=== PATIENT | male | born 1950 | race Caucasian/White ===

== ENCOUNTER 2018-08-11 11:40 | Day surgery (SDC) | payer MEDICARE ==
[2018-08-11] MEDS ORDERED: LACTATED RINGERS 1,000 ML IV ONE ×2 (12:11→14:17)
[2018-08-11] MEDS ORDERED: MIDAZOLAM 2 MG/2 ML VIAL IVP ONE (13:45)
[2018-08-11] MEDS ORDERED: fentaNYL 250 MCG/5 ML VIAL IVP ONE (13:45)
[2018-08-11 14:56] VITALS: BP 110/64
== END 2018-08-11 11:41 | disposition home or self-care (01) ==
LOC: SDS 11:40
PROVIDERS: ATTEND Surgery
PROC: 0DJD8ZZ Inspection of Lower Intestinal Tract, Via Natural or Artificial Opening Endoscopic (ICD-10-PCS; principal; 2018-08-11 12:45)
DX: Z12.11 Encounter for screening for malignant neoplasm of colon (principal); Z86.010 Personal history of colon polyps; K64.8 Other hemorrhoids
CPT/HCPCS: G0105; J3010; J7120

== ENCOUNTER 2019-10-16 14:45 | Outpatient (CLI) | payer MEDICARE ==
--- NOTE | 2019-10-16 17:08 | Ultrasound Report ---
Reason: HISTORY OF MALIGNANT MELANOMA X2 Procedure Date: 10/16/2019 Accession Number: [id number] / [id number] Procedure: US - Head or Neck Soft Tissue CPT Code: Final Report FULL RESULT: EXAM: NECK SOFT TISSUE ULTRASOUND EXAM DATE: 10/16/2019 03:10 PM. CLINICAL HISTORY: HISTORY OF MALIGNANT MELANOMA X2. Left neck palpable lump. History of malignant melanoma x2. COMPARISON: None. TECHNIQUE: Real time sonographic imaging of the thyroid was performed by the drying can worker. Multiple retail field representative static images were saved for review. FINDINGS: Area scanned is over the palpable lump at the left side of the neck. At the palpable abnormality, there is a hypoechoic round mass, non-mobile and noncompressible with some vascularity, measures 9 x 9 x 8 mm. This could represent a malignant mass/metastasis, and further workup is recommended. IMPRESSION: Area scanned is over the palpable lump at the left side of the neck. At the palpable abnormality, there is a hypoechoic round mass, non-mobile and noncompressible with some vascularity, measures 9 x 9 x 8 mm. This could represent a malignant mass/metastasis, and further workup is recommended. RADIA
== END 2019-10-16 14:46 | disposition home or self-care (01) ==
LOC: DI 14:45
PROVIDERS: ATTEND Physician Assistant Medical
DX: R22.1 Localized swelling, mass and lump, neck (principal); Z85.820 Personal history of malignant melanoma of skin
CPT/HCPCS: 76536

== ENCOUNTER 2021-09-18 08:00 | Outpatient (CLI) | payer MEDICARE ==
[2021-09-18 20:27] LABS: BILIRUBIN,URINE NEGATIVE (NEGATIVE); GLUCOSE, URINE (UA) NEGATIVE (NEGATIVE); KETONES,URINE (UA) NEGATIVE (NEGATIVE); LEUKOCYTE ESTERASE, URINE MODERATE (NEGATIVE); NITRITE,URINE NEGATIVE (NEGATIVE); OCCULT BLOOD,URINE MODERATE (NEGATIVE); PH,URINE 5.5 PH (5.0-7.5); PROTEIN,URINE NEGATIVE (NEGATIVE); UROBILINOGEN,URINE 0.2 (NORMAL) E.U./dL (NORMAL)
[2021-09-18 20:35] LABS: CLARITY,URINE HAZY (CLEAR)
[2021-09-18 20:54] LABS: BACTERIA,URINE Moderate /HPF (None Seen); SQUAMOUS EPITHELIAL CELL,UR RARE Squamous (<= Few); WBC,URINE >25 /HPF (0-3)
== END 2021-09-18 23:59 | disposition home or self-care (01) ==
LOC: LAB.S 08:00
PROVIDERS: ATTEND Physician Assistant Medical
DX: R35.0 Frequency of micturition (principal)
CPT/HCPCS: 81001; 87086; 87181

== ENCOUNTER 2021-12-11 08:00 | Outpatient (CLI) | payer MEDICARE ==
--- NOTE | 2021-12-11 10:24 | XRAY Report ---
PROCEDURE: Abdomen 2 View X-Ray INDICATIONS: ABDOMINAL PAIN TECHNIQUE: 2 views of the abdomen were acquired. COMPARISON: Postoperative changes of right shoulder replacement. Irregular airspace opacities in the right lower lobe are seen which were not present on the prior study on 03/08/2021. There is also blun ting of the left costophrenic angle consistent with a pleural effusion. With the appearance of fibros is FINDINGS: Surgical changes and devices: None. Bowel: No pneumoperitoneum. The bowel gas pattern is normal. Soft tissues: No masses; visualized solid organ contours appear normal in size. No suspicious abdom inal calcifications. Bones: No suspicious bony abnormalities. IMPRESSION: 1. Right lower lobe airspace opacities 2. Bilateral lower lobe pleural effusions small bilateral pleural effusions there is rightward curvat ure of the thoracic spine., New compared to the prior x-ray. Differential diagnosis includes pneumoni a. Close consistent with pneumonia most consistent with pneumonia. Reviewed by: Orlando Mcadmas on 12/11/2021 9:23 AM BABITA Approved by: Orlando Mcadams on 12/11/2021 9:23 AM BABITA Station ID: [id number]
--- NOTE | 2021-12-11 10:27 | XRAY Report ---
PROCEDURE: Pelvis 1 View INDICATIONS: FOREIGN BODY IN RECTUM X 2 DAYS TECHNIQUE: AP and lateral views of the pelvis were performed. COMPARISON: None. FINDINGS: There is a foreign body in the right lower quadrant superimposed over the right sacrum on the right, likely the rectal foreign body described in patient history. No other significant abnormality other t de paz mild degenerative changes. IMPRESSION: Foreign body in the right lower quadrant, likely within the distal sigmoid colon/rectum. Reviewed by: Orlando Mcadams on 12/11/2021 9:25 AM BABITA Approved by: Orlando Mcadams on 12/11/2021 9:25 AM BABITA Station ID: [id number]
== END 2021-12-11 23:59 | disposition home or self-care (01) ==
LOC: DI.S 08:00
PROVIDERS: ATTEND Physician Assistant
DX: T18.5XXA Foreign body in anus and rectum, initial encounter (principal); J90 Pleural effusion, not elsewhere classified

== ENCOUNTER 2021-12-11 11:06 | Day surgery (SDC) | payer MEDICARE ==
[2021-12-11 11:30] LABS: BASOPHILS % (AUTO) 0.3 %; EOSINOPHILS # (AUTO) 0.2 10^3/uL (0.0-0.7); EOSINOPHILS % (AUTO) 2.4 %; HCT - HEMATOCRIT 43.9 % (42.0-52.0); HGB - HEMOGLOBIN 14.4 g/dL (14.0-18.0); LYMPHOCYTES # (AUTO) 1.3 10^3/uL (1.5-3.5); LYMPHOCYTES % (AUTO) 12.6 %; MEAN CORPUSCULAR HEMOGLOBIN 27.6 pg (27.0-31.0); MEAN CORPUSCULAR HGB CONC 32.8 g/dL (32.0-36.0); MEAN CORPUSCULAR VOLUME 84.1 fL (80.0-94.0); MEAN PLATELET VOLUME 10.9 fL (7.4-11.4); MONOCYTES # (AUTO) 1.2 10^3/uL (0.0-1.0); MONOCYTES % (AUTO) 11.8 %; NEUTROPHILS # (AUTO) 7.2 10^3/uL (1.5-6.6); NEUTROPHILS % (AUTO) 72.7 %; PLT - PLATELET COUNT 213 10^3/uL (130-450); RED BLOOD COUNT 5.22 10^6/uL (4.70-6.10); RED CELL DISTRIBUTION WIDTH 14.9 % (12.0-15.0); WHITE BLOOD COUNT 9.9 x10^3/uL (4.8-10.8)
[2021-12-11 11:32] LABS: BILIRUBIN,URINE NEGATIVE (NEGATIVE); GLUCOSE, URINE (UA) NEGATIVE (NEGATIVE); KETONES,URINE (UA) NEGATIVE (NEGATIVE); LEUKOCYTE ESTERASE, URINE NEGATIVE (NEGATIVE); NITRITE,URINE NEGATIVE (NEGATIVE); OCCULT BLOOD,URINE NEGATIVE (NEGATIVE); PH,URINE 5.5 PH (5.0-7.5); PROTEIN,URINE NEGATIVE (NEGATIVE); UROBILINOGEN,URINE 0.2 (NORMAL) E.U./dL (NORMAL)
[2021-12-11 11:34] LABS: CLARITY,URINE CLEAR (CLEAR)
[2021-12-11 11:44] LABS: ALBUMIN 4.3 g/dL (3.2-5.5); ALBUMIN/GLOBULIN RATIO 1.2 (1.0-2.2); BILIRUBIN,TOTAL 0.5 mg/dL (0.2-1.0); CALCIUM 9.7 mg/dL (8.5-10.3); CREATININE 1.1 mg/dL (0.6-1.2); POTASSIUM 4.3 mmol/L (3.5-5.0)
--- NOTE | 2021-12-11 11:57 | CT Report ---
PROCEDURE: Abdomen/Pelvis WO INDICATIONS: rectal FB, now RLQ pain TECHNIQUE: Noncontrast 5 mm thick sections acquired from the diaphragms to the symphysis. 5 mm coronal and sagi ttal reformats were then performed. For radiation dose reduction, the following was used: automated exposure control, adjustment of mA and/or kV according to patient size. COMPARISON: Radiograph on the same day. FINDINGS: Image quality: Excellent. ABDOMEN: Lung bases: Scarring/atelectasis in posterior aspect of bilateral lung bases are seen. Heart size is normal. Solid organs: Liver and spleen are normal in size. Gallbladder is within normal limits. Pancreas i s normal in contours. No adrenal nodules. Kidneys are normal in size, without hydronephrosis or nep hrolithiasis. 3.9 x 4.1 cm simple appearing cyst is seen in mid pole of left kidney. Peritoneum and bowel: There is no bowel obstruction. No abnormal stomach or small bowel wall thickeni ng. Mild fecal stasis in the colon is seen. No colonic wall thickening is seen in ascending, transver se, and descending colon. There is redundant sigmoid colon with tubular foreign body within mid to di stal sigmoid colon in right lower quadrant abdomen. Finding is best seen on series 3 images 45-60 and series 6 images 12 through 23, series 7 image 48. There is suggestion of mild diffuse rectal wall th ickening with perirectal fat stranding. No discrete abscess collection. No free fluid of free air. Nodes and vessels: No retroperitoneal or mesenteric adenopathy by size criteria. Aorta and inferior vena cava are normal in caliber. Miscellaneous: No ventral hernias. PELVIS: Genitourinary: Mild diffuse bladder wall thickening is seen, no discrete bladder wall mass. Miscellaneous: No inguinal hernias or adenopathy. Bones: No suspicious bony lesions. No vertebral body compression fractures. IMPRESSION: 1. Mild diffuse rectal wall thickening with perirectal fat stranding concerning for mild proctitis. N o abscess collection. 2. Suggestion of foreign body within redundant sigmoid colon in right lower quadrant abdomen with mil d associated mid to distal sigmoid colon wall thickening. 3. Mild constipation. No bowel obstruction. No other area of abnormal bowel wall thickening. No free fluid of free air. 4. Renal cysts as above. No obstructing renal stones or hydronephrosis. Mild diffuse bladder wall thi ckening, which may be due to underdistention. Low-grade cystitis cannot be excluded. Reviewed by: Travis Barragan MD on 12/11/2021 11:55 AM PDT Approved by: Travis Barragan MD on 12/11/2021 11:55 AM PDT Station ID: [id number]
--- NOTE | 2021-12-11 13:06 | ED Physician Documentation ---
History of Present Illness - Stated complaint Stated Complaint: ABD PX - Chief complaint Chief Complaint: Abd Pain - History obtained from History obtained from: Patient - History of Present Illness Timing: Today Pain level max: 0 Pain level now: 0 - Additonal information Additional information: Patient is a 71-year-old male who presents to the emergency department complaining of a retained rectal foreign body. This occurred yesterday. He states that this was a sexual aide. He went to the walk-in clinic today where there was an x-ray performed which showed the rectal foreign body in the right lower quadrant. He was sent here for further evaluation. No fevers. No chills. Mild abdominal pain. No diarrhea. Nothing makes it better or worse. Does have a history of malignant melanoma currently not undergoing chemotherapy. He states currently in remission. Review of Systems Constitutional: denies: Fever, Chills Respiratory: denies: Cough GI: denies: Nausea, Vomiting, Diarrhea, Hematemesis, Bloody / black stool : denies: Dysuria Skin: denies: Rash Musculoskeletal: denies: Neck pain, Back pain Neurologic: denies: Headache PD PAST MEDICAL HISTORY - Past Medical History Past Medical History: Yes Cardiovascular: None Respiratory: None Endocrine/Autoimmune: None GI: None : None HEENT: None Psych: None Musculoskeletal: None Derm: None - Past Surgical History General: Other Ortho: Other - Present Medications Home Medications: Ambulatory Orders Medication Instructions Recorded Confirmed Ergocalciferol (Vitamin D2) 50 mcg PO DAILY 08/08/18 08/08/18 [Vitamin D2] - Allergies Allergies/Adverse Reactions: Allergies Allergy/AdvReac Type Severity Reaction Status Date / Time No Known Drug Allergies Allergy Verified 08/08/18 11:35 PD ED PE NORMAL - Vitals Vital signs reviewed: Yes - General General: Alert and oriented X 3, No acute distress, Well developed/nourished - HEENT HEENT: PERRL, Moist mucous membranes - Neck Neck: Supple, no meningeal sign - Cardiac Cardiac: RRR, Strong equal pulses - Respiratory Respiratory: No respiratory distress, Clear bilaterally - Abdomen Abdomen: Soft, Non tender, Non distended - Derm Derm: Warm and dry - Extremities Extremities: No edema - Neuro Neuro: Alert and oriented X 3 - Psych Psych: Normal mood, Normal affect Results - Vitals Vitals: Vital Signs - 24 hr 0712/11/21 12/11/21 11:10 11:13 13:13 Temperature 36.9 C 36.9 C Heart Rate 66 66 64 Heart Rate [ Brachial] Respiratory 19 19 16 Rate Blood Pressure 129/71 129/71 128/72 Blood Pressure [Right Brachial artery] O2 Saturation 99 99 100 12/11/21 12/11/21 12/11/21 15:00 15:54 16:00 Temperature 36.8 C 36.9 C 36.9 C Heart Rate 62 72 68 Heart Rate [ Brachial] Respiratory 16 10 L 19 Rate Blood Pressure 126/72 98/64 101/71 Blood Pressure [Right Brachial artery] O2 Saturation 100 97 100 12/11/21 12/11/21 12/11/21 16:05 16:10 16:23 Temperature 36.9 C 36.9 C 36.9 C Heart Rate 66 64 64 Heart Rate [ Brachial] Respiratory 17 16 16 Rate Blood Pressure 101/66 102/67 110/67 Blood Pressure [Right Brachial artery] O2 Saturation 98 98 98 12/11/21 16:48 Temperature 37.1 C Heart Rate Heart Rate [ 62 Brachial] Respiratory 18 Rate Blood Pressure Blood Pressure 115/63 [Right Brachial artery] O2 Saturation 95 Oxygen O2 Source Room air - Labs Labs: Laboratory Tests 12/11/21 12/11/21 12/11/21 11:21 11:25 11:25 WBC 9.9 RBC 5.22 Hgb 14.4 Hct 43.9 MCV 84.1 MCH 27.6 MCHC 32.8 RDW 14.9 Plt Count 213 MPV 10.9 Neut # (Auto) 7.2 H Lymph # (Auto) 1.3 L [place] # (Auto) 1.2 H Eos # (Auto) 0.2 Baso # (Auto) 0.0 Absolute Nucleated RBC 0.00 Nucleated RBC % 0.0 Sodium 138 Potassium 4.3 Chloride 102 Carbon Dioxide 28 Anion Gap 8.0 BUN 15 Creatinine 1.1 Estimated GFR (MDRD) 66 L Glucose 102 H Calcium 9.7 Total Bilirubin 0.5 AST 23 ALT 24 Alkaline Phosphatase 61 Total Protein 8.0 Albumin 4.3 Globulin 3.7 Albumin/Globulin Ratio 1.2 Lipase 36 Urine Color YELLOW Urine Clarity CLEAR Urine pH 5.5 Ur Specific [place] 1.020 Urine Protein NEGATIVE Urine Glucose (UA) NEGATIVE Urine Ketones NEGATIVE Urine Occult Blood NEGATIVE Urine Nitrite NEGATIVE Urine Bilirubin NEGATIVE Urine Urobilinogen 0.2 (NORMAL) Ur Leukocyte Esterase NEGATIVE Ur Microscopic Review NOT INDICATED Urine Culture Comments NOT INDICATED SARS-CoV-2 (PCR) 12/11/21 12:44 WBC RBC Hgb Hct MCV MCH MCHC RDW Plt Count MPV Neut # (Auto) Lymph # (Auto) [place] # (Auto) Eos # (Auto) Baso # (Auto) Absolute Nucleated RBC Nucleated RBC % Sodium Potassium Chloride Carbon Dioxide Anion Gap BUN Creatinine Estimated GFR (MDRD) Glucose Calcium Total Bilirubin AST ALT Alkaline Phosphatase Total Protein Albumin Globulin Albumin/Globulin Ratio Lipase Urine Color Urine Clarity Urine pH Ur Specific [place] Urine Protein Urine Glucose (UA) Urine Ketones Urine Occult Blood Urine Nitrite Urine Bilirubin Urine Urobilinogen Ur Leukocyte Esterase Ur Microscopic Review Urine Culture Comments SARS-CoV-2 (PCR) NOT DETECTED - Rads (name of study) CT abd/pelvis Radiology: Final report received, EMP read contemporaneously, See rad report PD MEDICAL DECISION MAKING - ED course Complexity details: reviewed results, re-evaluated patient, considered differential, d/w patient, d/w residential sales consultant ED course: I contacted Dr. Ferreira, general surgery on-call at 1300. He will review the images and determine if this is something he can take care of at this facility. Dr. Ferreira will take the patient to the operating room for foreign body removal. This document was made in part using voice recognition software. While efforts are made to proofread this document, sound alike and grammatical errors may occur. IMPRESSION: 1. Mild diffuse rectal wall thickening with perirectal fat stranding concerning for mild proctitis. No abscess collection. 2. Suggestion of foreign body within redundant sigmoid colon in right lower quadrant abdomen with mild associated mid to distal sigmoid colon wall thickening. 3. Mild constipation. No bowel obstruction. No other area of abnormal bowel wall thickening. No free fluid of free air. 4. Renal cysts as above. No obstructing renal stones or hydronephrosis. Mild diffuse bladder wall thickening, which may be due to underdistention. Low-grade cystitis cannot be excluded. Departure - Departure Disposition: ED Transfer to [facility] Clinical Impression: Rectal foreign body Qualifiers: Encounter type: initial encounter Qualified Code(s): T18.5XXA - Foreign body in anus and rectum, initial encounter Condition: Stable Discharge Date/Time: 12/11/21 15:29
--- NOTE | 2021-12-11 14:52 | HISTORY & PHYSICAL EXAMINATION ---
Chief Complaint - Chief Complaint Chief Complaint: abdominal pain History of Present Illness - History Obtained From Records Reviewed: yes History obtained from: pt Exam Limitations: none - History of Present Illness HPI Comment/Other: approximately 10 cm foreign body which has migrated from his rectum up into his colon over the last 24 hours. having mild abdominal discomfort History - Past Medical History Cardiovascular: reports: None Respiratory: reports: None Endocrine/Autoimmune: reports: None GI: reports: None : reports: None HEENT: reports: None Psych: reports: None Musculoskeletal: reports: None Derm: reports: None MRSA Hx?: No - Past Surgical History General: reports: Other Ortho: reports: Other Meds/Allgy - Home Medications Home Medications: Ambulatory Orders Medication Instructions Recorded Confirmed Ergocalciferol (Vitamin D2) 50 mcg PO DAILY 08/08/18 08/08/18 [Vitamin D2] - Allergies Allergies/Adverse Reactions: Allergies Allergy/AdvReac Type Severity Reaction Status Date / Time No Known Drug Allergies Allergy Verified 08/08/18 11:35 Review of Systems - Other Findings Other Findings: 10 pt ros as above otherwise unremarkable Exam - Vital Signs Vital Signs: Vital Signs x48h Temp Pulse Resp BP Pulse Ox 12/11/21 13:13 64 16 128/72 100 12/11/21 11:13 36.9 C 66 19 129/71 99 12/11/21 11:10 36.9 C 66 19 129/71 99 - Physical Exam General Appearance: positive: No acute distress, Alert Eyes Bilateral: positive: PERRL, EOMI, No scleral icterus ENT: positive: No signs of dehydration Neck: positive: No JVD, Trachea midline Respiratory: positive: No respiratory distress, Breath sounds nml Cardiovascular: positive: Regular rate & rhythm Abdomen: positive: Non-tender, No distention Neurologic/Psychiatric: positive: Oriented x3 Conclusion/Plan - Problem List (1) Rectal foreign body Conclusion/Plan: the foreign body is about 10 cm in length and over the last 24 hours has migrated upwards into the colon. at length we discussed I am not a tenterer. Options are for me to gently try to remove with scope and if not possible open abdomen incision on colon and possible colostomy vs transfer to a hospital which can offer a higher level of care with dedicated tenterer. after much consideration and discussion he agrees to endoscopy by me and possible laparotomy and colostomy . parq held and consent obtained Qualifiers: Encounter type: initial encounter Qualified Code(s): T18.5XXA - Foreign body in anus and rectum, initial encounter - Lab Results Fish Bones: 12/11/21 11:25 12/11/21 11:25
--- NOTE | 2021-12-11 15:13 | ANESTHESIA ---
Pre-Anesthesia VS, & Labs - Diagnosis foreign body in sigmoid colon - Procedure colonoscopy for removal of FB, possible laparotomy Vital Signs: Temp Pulse Resp BP Pulse Ox 36.9 C 64 16 128/72 100 12/11/21 11:13 12/11/21 13:13 12/11/21 13:13 12/11/21 13:13 12/11/21 13:13 Height: 6 ft Weight (kg): 79.379 kg Body Mass Index: 23.7 BMI Classification: Healthy weight - NPO >8 hours - Lab Results Current Lab Results: Laboratory Tests 12/11/21 11:25: Sodium 138, Potassium 4.3, Chloride 102, Carbon Dioxide 28, Anion Gap 8.0, BUN 15, Creatinine 1.1, Estimated GFR (MDRD) 66 L, Glucose 102 H, Calcium 9.7, Total Bilirubin 0.5, AST 23, ALT 24, Alkaline Phosphatase 61, Total Protein 8.0, Albumin 4.3, Globulin 3.7, Albumin/Globulin Ratio 1.2, Lipase 36 12/11/21 11:25: WBC 9.9, RBC 5.22, Hgb 14.4, Hct 43.9, MCV 84.1, MCH 27.6, MCHC 32.8, RDW 14.9, Plt Count 213, MPV 10.9, Neut # (Auto) 7.2 H, Lymph # (Auto) 1.3 L, [place] # (Auto) 1.2 H, Eos # (Auto) 0.2, Baso # (Auto) 0.0, Absolute Nucleated RBC 0.00, Nucleated RBC % 0.0 Fish Bones: 12/11/21 11:25 12/11/21 11:25 Home Medications and Allergies Ergocalciferol (Vitamin D2) [Vitamin D2] 50 mcg PO DAILY 08/08/18 Allergies/Adverse Reactions: Allergies Allergy/AdvReac Type Severity Reaction Status Date / Time No Known Drug Allergies Allergy Verified 08/08/18 11:35 Anes History & Medical History - Anesthetic History Anesthesia Complications: reports: No previous complications - Medical History Cardiovascular: reports: None Pulmonary: reports: None Gastrointestinal: reports: None Urinary: reports: None Musculoskeletal: reports: None Endocrine/Autoimmune: reports: None Skin: reports: None History of Cancer?: Yes (melanoma with mets, just finished 2 years of chemo) - Surgical History General: reports: Other Orthopedic: reports: Other Exam General: Alert, Oriented x3, Cooperative, No acute distress Dental: WNL Mouth Opening: Greater than 4 Fingerbreadths Neck Mobility: Normal Mallampati classification: I Thyromental Distance: greater than 6 cm Respiratory: Lungs clear Cardiovascular: Regular rate, Normal S1, Normal S2 Plan Anesthesia Type: General, MAC, Total IV Consent for Procedure(s) Verified and Reviewed: Yes Code Status: Attempt Resuscitation ASA classification: 2-Mild systemic disease Is this case an emergency?: Yes
--- NOTE | 2021-12-11 15:56 | OPERATIVE REPORT ---
Operative Report - General Procedure Date: 12/11/21 Planned Procedure: removal foreign body colon Pre-Op Diagnosis: foreign body colon Procedure Performed: removal foreign body colon and sigmoidoscopy Post Op Diagnosis: foreign body rectum extending into colon - Procedure Note Primary Surgeon: dwayne mix Anesthesia Technique: MAC Pathology: not sent. no biopsies Estimated Blood Loss (mL): 0 Indications: foreign body colon and abdominal pain without peritonitis Findings: superficial ulceration mucosa sigmoid colon 2 cm Complications: none - Other Other Information/Narrative: see endoscopy report foreign body was in rectum and retrieved easily by hand, without instrumentation. sigmoidoscopy then performed foreign body approx 20 cm long
[2021-12-11] MEDS ORDERED: LIDOCAINE-MPF 2% 5 ML VIAL ONE (15:58)
[2021-12-11] MEDS ORDERED: PROPOFOL 500 MG/50 ML 500 MG/50 ML VIAL ONE (15:58)
[2021-12-11] MEDS ORDERED: LACTATED RINGERS 600 ML IV ONE (15:58)
[2021-12-11] MEDS ORDERED: ACETAMINOPHEN 500 MG TABLET PO PRN (15:59)
[2021-12-11] MEDS ORDERED: ePHEDrine 50 MG/ML VIAL IVP PRN (16:08)
[2021-12-11] MEDS ORDERED: ATROPINE ABBOJECT 1 MG/10 ML SYRINGE IVP PRN (16:08)
[2021-12-11] MEDS ORDERED: MORPHINE 2 MG/ML CARPUJECT IVP PRN (16:08)
[2021-12-11] MEDS ORDERED: fentaNYL 100 MCG/2 ML VIAL IVP PRN (16:08)
[2021-12-11] MEDS ORDERED: METOCLOPRAMIDE 10 MG/2 ML VIAL IVP PRN (16:08)
[2021-12-11] MEDS ORDERED: HYDROmorphone 0.5 MG/0.5 ML SYRINGE IVP PRN (16:08)
[2021-12-11] MEDS ORDERED: ONDANSETRON 4 MG/2 ML VIAL IVP PRN (16:08)
[2021-12-11] MEDS ORDERED: NALOXONE 0.4 MG/ML VIAL IVP PRN (16:08)
--- NOTE | 2021-12-11 16:26 | ANESTHESIA POST OP EVALUATION ---
Anesthesia Post Eval - Post Anesthesia Eval Vitals: Last Vital Signs Temp 36.9 C 12/11/21 16:23 Pulse 64 12/11/21 16:23 Resp 16 12/11/21 16:23 BP 110/67 12/11/21 16:23 Pulse Ox 98 12/11/21 16:23 CV Function Including HR & BP: Stable Pain Control: Satisfactory Nausea & Vomiting: Negative Mental Status: Baseline Respiratory Status: Airway Patent Hydration Status: Satisfactory Anesthesia Complications: None
[2021-12-11] MEDS: LACTATED RINGERS 1,000 ML IV SCH ×2 (17:00→21:25)
[2021-12-11] MEDS ORDERED: LACTATED RINGERS 1,000 ML IV SCH (17:00)
[2021-12-11] MEDS: CEFOTETAN DISODIUM 1 GM in SODIUM CHLORIDE 0.9% MINIBAG 100 ML IV SCH (17:42)
[2021-12-12] MEDS: CEFOTETAN DISODIUM 1 GM in SODIUM CHLORIDE 0.9% MINIBAG 100 ML IV SCH (04:29)
[2021-12-12 09:29] VITALS: BP 112/72
== END 2021-12-12 09:00 | disposition home or self-care (01) ==
LOC: ED 11:06 → SDS 14:10 → MS2 16:18 → SDS 12-12 09:00
PROVIDERS: ATTEND Surgery
DX: T18.5XXA Foreign body in anus and rectum, initial encounter (principal); X58.XXXA Exposure to other specified factors, initial encounter; K63.3 Ulcer of intestine; Z20.822 Contact with and (suspected) exposure to COVID-19
CPT/HCPCS: 36415; 45330; 74176; 80053; 81003; 83690; 85025; 87635; J7120; 81001; 87086

== ENCOUNTER 2022-07-28 11:36 | Emergency (ER) | payer MEDICARE ==
[2022-07-28 11:51] VITALS: BP 137/80
[2022-07-28] MEDS ORDERED: NAPROXEN 250 MG TABLET PO STA (12:08)
--- NOTE | 2022-07-28 12:10 | ED Physician Documentation ---
PD HPI UPPER EXT INJURY - Stated complaint Stated Complaint: L ARM PX, SWOLLEN ELBOW - Chief complaint Chief Complaint: Ext Problem - History obtained from History obtained from: Patient - Additonal information Additional information: 72-year-old gentleman with history of stage IV melanoma. 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 Was on immunotherapy with the [facility] until December, but was doing well and has not been on specific treatment since. About 6 days ago developed a sore throat which is better, and then developed mild cough which is improved but not completely gone. Over the last couple of days though has developed severe left elbow pain radiating down the arm. There was no injury or overuse/repetitive use. He had a slight fever at the beginning of the URI but not since. PD PAST MEDICAL HISTORY - Past Medical History Cardiovascular: None Respiratory: None Endocrine/Autoimmune: None GI: None : None HEENT: None Psych: None Musculoskeletal: None Derm: None - Past Surgical History General: Other Ortho: Other - Present Medications Home Medications: Ambulatory Orders Medication Instructions Recorded Confirmed Ergocalciferol (Vitamin D2) 50 mcg PO DAILY 08/08/18 07/28/22 [Vitamin D2] Naproxen 500 mg PO BID PRN #20 tablet 07/28/22 [place]-3/Dha/Epa/Fish Oil [Fish Oil 1 each PO DAILY 07/28/22 07/28/22 1,000 mg Softgel] Vitamin B Complex 1 each PO DAILY 07/28/22 07/28/22 - Allergies Allergies/Adverse Reactions: Allergies Allergy/AdvReac Type Severity Reaction Status Date / Time No Known Drug Allergies Allergy Verified 07/28/22 11:51 PD ED PE NORMAL - Vitals Vital signs reviewed: Yes - General General: Alert and oriented X 3, No acute distress - HEENT HEENT: PERRL, EOMI - Neck Neck: Supple, no meningeal sign, No bony TTP - Cardiac Cardiac: RRR, No murmur - Respiratory Respiratory: No respiratory distress, Clear bilaterally - Abdomen Abdomen: Non tender, Non distended - Derm Derm: Normal color, Warm and dry - Extremities Extremities: Other (He is exquisitely tender over the lateral condyle of the left elbow. He can only flex to about 90 degrees and cannot completely straighten it. There is no tenderness over the olecranon or the medial epicondyle. No wrist or forearm tenderness. No warmth or redness. He has severe pain with forced) - Neuro Neuro: Alert and oriented X 3, Normal speech Results - Vitals Vitals: Vital Signs - 24 hr 07/28/22 11:48 Temperature 36.7 C Heart Rate 72 Respiratory 18 Rate Blood Pressure 137/80 H O2 Saturation 100 Oxygen O2 Source Room air - Labs Labs: Laboratory Tests 07/28/22 07/28/22 07/28/22 12:25 12:25 12:25 WBC 7.7 RBC 5.47 Hgb 14.7 Hct 45.7 MCV 83.5 MCH 26.9 L MCHC 32.2 RDW 13.1 Plt Count 235 MPV 10.3 Neut # (Auto) 4.7 Lymph # (Auto) 1.7 [place] # (Auto) 1.0 Eos # (Auto) 0.2 Baso # (Auto) 0.0 Absolute Nucleated RBC 0.00 Nucleated RBC % 0.0 ESR 18 Sodium 138 Potassium 4.0 Chloride 102 Carbon Dioxide 25 Anion Gap 11.0 BUN 16 Creatinine 1.1 Estimated GFR (MDRD) 65 L Glucose 90 Calcium 9.0 C-Reactive Protein 2.6 H - Rads (name of study) Three-view x-ray left elbow demonstrates moderate effusion and degenerative changes Radiology: Final report received, EMP read indepedently PD Medical Decision Making - ED course ED course: 72-year-old gentleman who presents with acute left elbow pain. Seems most consistent with lateral epicondylitis based on examination. Infection considered, but there is no warmth or redness. And his white count and ESR normal with only modest elevation of the CRP, not consistent with an infectious etiology. Also afebrile. He does have a small effusion on the x-ray, but it does not look like its enough to pursue with arthrocentesis at this time. Consideration for metastasis given his Underlying melanoma, but no evidence of that on x-ray. He did have improved range of motion here on recheck after the administration of naproxen. Departure - Departure Disposition: 01 Home, Self Care Clinical Impression: Elbow pain, left Condition: Good Record reviewed to determine appropriate education?: Yes Instructions: ED Epicondylitis Lateral Elbow Follow-Up: Orthopedic Care [Provider Group] Prescriptions: Naproxen 500 mg PO BID PRN #20 tablet PRN Reason: Pain Comments: As discussed, clinically it seems that you have lateral epicondylitis of the left elbow. This is an inflammatory condition. I recommend you get a "tennis elbow brace" at the [facility] and use it as per package instructions. We also prescribed a sling here. But recommend you only use it when up and around and that you try to do some range of motion of the shoulder. Should follow-up with orthopedics in about a week for further evaluation and treatment. Return for new or worsening symptoms, especially fever.
[2022-07-28 12:32] LABS: BASOPHILS % (AUTO) 0.4 %; EOSINOPHILS # (AUTO) 0.2 10^3/uL (0.0-0.7); EOSINOPHILS % (AUTO) 2.9 %; HCT - HEMATOCRIT 45.7 % (42.0-52.0); HGB - HEMOGLOBIN 14.7 g/dL (14.0-18.0); LYMPHOCYTES # (AUTO) 1.7 10^3/uL (1.5-3.5); LYMPHOCYTES % (AUTO) 21.5 %; MEAN CORPUSCULAR HEMOGLOBIN 26.9 pg (27.0-31.0); MEAN CORPUSCULAR HGB CONC 32.2 g/dL (32.0-36.0); MEAN CORPUSCULAR VOLUME 83.5 fL (80.0-94.0); MEAN PLATELET VOLUME 10.3 fL (7.4-11.4); MONOCYTES % (AUTO) 13.4 %; NEUTROPHILS # (AUTO) 4.7 10^3/uL (1.5-6.6); NEUTROPHILS % (AUTO) 61.5 %; PLT - PLATELET COUNT 235 10^3/uL (130-450); RED BLOOD COUNT 5.47 10^6/uL (4.70-6.10); RED CELL DISTRIBUTION WIDTH 13.1 % (12.0-15.0); WHITE BLOOD COUNT 7.7 x10^3/uL (4.8-10.8)
--- NOTE | 2022-07-28 12:38 | XRAY Report ---
PROCEDURE: Elbow 3 View LT INDICATIONS: elbow pain TECHNIQUE: 3 views of the elbow were acquired. COMPARISON: None FINDINGS: Bones: No fractures or dislocations. No suspicious bony lesions. Degenerative changes are seen, in cluding antithyroid along the posterior aspect of the olecranon. Soft tissues: There is a moderate elbow joint effusion. No suspicious soft tissue calcifications. IMPRESSION: No displaced fracture can be seen. Moderate elbow joint effusion. Degenerative changes are seen. If it would be helpful for clinical management decision making, please consider a dedicated, schedule d elbow MRI for further evaluation (assuming that there is no contraindication). Reviewed by: Supa New MD on 07/28/2022 11:37 AM [facility] Approved by: Supa New MD on 07/28/2022 11:37 AM [facility] Station ID: [id number]
[2022-07-28 12:46] LABS: CREATININE 1.1 mg/dL (0.6-1.2); CRP - C-REACTIVE PROTEIN 2.6 mg/dL (0-1.0)
== END 2022-07-28 13:42 | disposition home or self-care (01) ==
LOC: ED 11:36
DX: M25.522 Pain in left elbow (principal); C43.9 Malignant melanoma of skin, unspecified; C78.00 Secondary malignant neoplasm of unspecified lung; C79.31 Secondary malignant neoplasm of brain
CPT/HCPCS: 36415; 73080; 80048; 85025; 85651; 86140; 99284; A9270